=== PATIENT | male | born 1955 | race Caucasian/White ===

== ENCOUNTER 2020-08-19 18:44 | Emergency (ER) | payer BC ==
[~2020-08-19] VITALS: Ht 188 cm; Wt 98.9 kg
--- NOTE | 2020-08-19 18:55 | NUR ---
Note undone in EDM - 08/19/20 at 1902 by ISELA BIBRA FROM HOME TO ER BED 12. DISCONRIENTED. NOT IN RESP DISTRESS, BRETHING EVEN AND UNLABORED. AMBULATED FROM GURNEY TO BED. BROUGHT IN FOR WITNESSED SEIZURE. NO REPORT OF TRAUMA TO HEAD. PT WAS REPORTED TO BE DRINKER BUT WHEN PT WAS ASKED HE DINED DRINKING. PT VERBALIZED THAT HE TAKES SEIZURE MEDS BUT DOES NOT KNOW THE NAME. PT IS PLACED ON SEIZURE PRECAUTION. PADDED SIDERAIL. WAS AT THE BEDSIDE FOR EVAL. ORDERS RECEIVED, NOTED AND CARRIED OUT. IV LINE ALREADY ESTABLISHED BY THE EMT [employer]. PT ON [facility].
--- NOTE | 2020-08-19 18:55 | NUR ---
LISA FROM HOME TO ER BED 12. DISCONRIENTED. NOT IN RESP DISTRESS, BREATHING EVEN AND UNLABORED, SATTING @ 96% ON RA AMBULATED FROM GURNEY TO BED. BROUGHT IN FOR WITNESSED SEIZURE. NO REPORT OF TRAUMA TO HEAD. CANDI RN SPOKE WITH AND GOT INFORMATION THAT THE PT DOES NOT HAVE A SEIZURE DISORDERED. SHE REPORTS THAT THE PATIENT IS TAKING CLONAZEPAM AND XANAX FOR ANXIETY. PT IS PLACED ON SEIZURE PRECAUTION. PADDED SIDERAIL. WAS AT THE BEDSIDE FOR EVAL. ORDERS RECEIVED, NOTED AND CARRIED OUT. IV LINE ALREADY ESTABLISHED BY THE EMT [employer]. PT ON [employer].
[2020-08-19] MEDS ORDERED: LORAZEPAM INJ 2 MG/ML VIAL IVP ONE (19:00)
--- NOTE | 2020-08-19 19:07 | NUR ---
EMT AT BEDSIDE FOR EKG
[2020-08-19 19:08] LABS: BASOPHILS # (AUTO) 0.1 /CMM (0.0-0.2); BASOPHILS % (AUTO) 0.9 % (0.0-2.0); EOSINOPHILS % (AUTO) 0.3 % (0.0-6.0); HEMATOCRIT 48 % (39-51); HEMOGLOBIN 16.5 g/dL (13.5-17.5); LYMPHOCYTES # (AUTO) 2.2 /CMM (0.8-4.8); LYMPHOCYTES % (AUTO) 21.1 % (20.0-44.0); MEAN CORPUSCULAR HGB CONC 35 g/dl (31.0-36.0); MEAN CORPUSCULAR VOLUME 99 fL (80-96); MONOCYTES # (AUTO) 1.5 /CMM (0.1-1.30); NEUTROPHILS # (AUTO) 6.6 /CMM (1.8-8.9); NEUTROPHILS % (AUTO) 63.7 % (43.0-81.0); PLATELET COUNT (AUTO) 190 /CMM (150-450); RED BLOOD CELL COUNT(AUTO) 4.79 MIL/uL (4.5-6.0); WHITE BLOOD COUNT (AUTO) 10.4 K/uL (4.3-11.0)
[2020-08-19] MEDS ORDERED: LORAZEPAM INJ 2 MG/ML VIAL ONE (19:08)
--- NOTE | 2020-08-19 19:17 | NUR ---
PT TO CT
[2020-08-19 19:41] LABS: PHENOBARBITAL 2 ug/ml (15-39)
[2020-08-19 19:42] LABS: ALANINE AMINOTRANSFERASE 54 U/L (12-78); ALBUMIN 3.8 g/dL (3.4-5.0); ALCOHOL, BLOOD < 3 mg/dL (0-0); ALKALINE PHOSPHATASE 78 U/L (46-116); ASPARTATE AMINOTRANSFERASE 57 U/L (15-37); BILIRUBIN,DIRECT 0.2 mg/dL (0.0-0.2); CALCIUM, SERUM 8.7 mg/dL (8.5-10.1); CARBON DIOXIDE 21 mmol/L (21-32); CHLORIDE 98 mmol/L (98-107); CREATININE 1.2 mg/dL (0.6-1.3); GLUCOSE 169 mg/dL (74-106); POTASSIUM 4.1 mmol/L (3.5-5.1); SODIUM SERUM 135 mmol/L (136-145); TOTAL PROTEIN, SERUM 7.6 g/dL (6.4-8.2); UREA NITROGEN, BLOOD 18 mg/dL (7-18)
[2020-08-19 19:54] LABS: PHENYTOIN (DILANTIN) 0.5 ug/ml (10.0-20.0)
[2020-08-19] MEDS ORDERED: CHLO25CA22 PO (20:07)
[2020-08-19] MEDS ORDERED: ONDANSETRON HCL/PF 4 MG/2 ML VIAL IVP ONE (21:00)
[2020-08-19] MEDS ORDERED: MORPHINE SULFATE INJ 2 MG/ML DISP.SYRIN IV ONE (21:00)
[2020-08-19] MEDS ORDERED: ONDANSETRON HCL/PF 4 MG/2 ML VIAL ONE (21:08)
[2020-08-19] MEDS ORDERED: MORPHINE SULFATE INJ 4 MG/ML DISP.SYRIN ONE ×2 (21:09→23:31)
--- NOTE | 2020-08-19 21:22 | NUR ---
PAWAN (): [phone] - CELL [phone] - BEGGS
--- NOTE | 2020-08-19 21:33 | NUR ---
PT'S IS AWARE THAT THE PATIENT IS GOING TO BE ADMITTED TO THE HOSPITAL W/ CHANCE OF GETTING TRANSFERRED TO A DIFFERENT HOSPITAL
--- NOTE | 2020-08-19 23:07 | NUR ---
COVID NEGATIVE PER LAB
[2020-08-19] MEDS ORDERED: MORPHINE SULFATE INJ 10 MG/ML DISP.SYRIN IV ONE (23:30)
--- NOTE | 2020-08-19 23:30 | NUR ---
PT COMPLAINED OF PAIN. MD MADE AWARE. VERBAL ORDER RECEIVED TO GIVEN MORPHINE 4MG IV X 1. NOTED AND CARRIED OUT
--- NOTE | 2020-08-20 00:35 | NUR ---
Call from Ruthy Vikram CANTU. Pt accepted to [facility] by Dr Oconnor. # for report [phone]. [facility] eta 50 minutes.
--- NOTE | 2020-08-20 00:58 | NUR ---
report given to crow tim for cesar nurse at [facility]
[2020-08-20 01:45] VITALS: BP 130/78
--- NOTE | 2020-08-20 02:04 | NUR ---
pt left in stable cond with private ambulance. report given. all transfer papers given. [place]ss. [place]
== END 2020-08-20 02:05 | disposition short-term general hospital (02) ==
LOC: ER 18:50
DX: F13.239 Sedative, hypnotic or anxiolytic dependence with withdrawal, unspecified (principal); R56.9 Unspecified convulsions; F10.11 Alcohol abuse, in remission; T42.4X5A Adverse effect of benzodiazepines, initial encounter; Y92.018 Other place in single-family (private) house as the place of occurrence of the external cause; Y90.0 Blood alcohol level of less than 20 mg/100 ml; J32.8 Other chronic sinusitis; S22.049A Unspecified fracture of fourth thoracic vertebra, initial encounter for closed fracture; X58.XXXA Exposure to other specified factors, initial encounter; Z20.822 Contact with and (suspected) exposure to COVID-19
CPT/HCPCS: 36415; 70450; 72128; 80048; 80076; 80184; 80185; 80320; 82962; 85025; 87426; 93005; 96374; 96375; 96376; 99285; C9803; J2060; J2270 ×2; J2405; G0480

== ENCOUNTER 2020-08-29 12:38 | Emergency (ER) | payer BC ==
[~2020-08-29] VITALS: Ht 188 cm; Wt 95.3 kg
[2020-08-29] MEDS ORDERED: ACETAMINOPHEN 325 MG TABLET PO ONE (13:00)
[2020-08-29] MEDS ORDERED: CEFTRIAXONE 1GM BAG (ER ONLY) 1 GM/50 ML PIGGYBACK IV ONE (13:00)
[2020-08-29] MEDS ORDERED: IV NS 0.9% 1,000 ML BAG IV ONE ×2 (13:00→15:30)
[2020-08-29] MEDS ORDERED: CEFTRIAXONE 1 G VIAL ONE (13:56)
[2020-08-29] MEDS ORDERED: CEFTRIAXONE 1GM BAG (ER ONLY) 50 ML IV ONE (14:03)
[2020-08-29 14:14] LABS: BASOPHILS # (AUTO) 0.1 /CMM (0.0-0.2); BASOPHILS % (AUTO) 0.9 % (0.0-2.0); EOSINOPHILS % (AUTO) 0.1 % (0.0-6.0); HEMATOCRIT 45 % (39-51); HEMOGLOBIN 15.1 g/dL (13.5-17.5); LYMPHOCYTES # (AUTO) 1.8 /CMM (0.8-4.8); LYMPHOCYTES % (AUTO) 11.9 % (20.0-44.0); MEAN CORPUSCULAR HGB CONC 34 g/dl (31.0-36.0); MEAN CORPUSCULAR VOLUME 99 fL (80-96); MONOCYTES # (AUTO) 2.1 /CMM (0.1-1.30); MONOCYTES % (AUTO) 13.6 % (2.0-12.0); NEUTROPHILS # (AUTO) 11.4 /CMM (1.8-8.9); NEUTROPHILS % (AUTO) 73.5 % (43.0-81.0); PLATELET COUNT (AUTO) 174 /CMM (150-450); RED BLOOD CELL COUNT(AUTO) 4.51 MIL/uL (4.5-6.0); WHITE BLOOD COUNT (AUTO) 15.5 K/uL (4.3-11.0)
[2020-08-29 14:21] LABS: CALCIUM, SERUM 8.6 mg/dL (8.5-10.1); CARBON DIOXIDE 23 mmol/L (21-32); CHLORIDE 99 mmol/L (98-107); CREATININE 1.3 mg/dL (0.6-1.3); GLUCOSE 143 mg/dL (74-106); POTASSIUM 3.8 mmol/L (3.5-5.1); SODIUM SERUM 135 mmol/L (136-145); UREA NITROGEN, BLOOD 33 mg/dL (7-18)
[2020-08-29 14:26] LABS: ALANINE AMINOTRANSFERASE 108 U/L (12-78); ALBUMIN 2.2 g/dL (3.4-5.0); ALKALINE PHOSPHATASE 85 U/L (46-116); ASPARTATE AMINOTRANSFERASE 52 U/L (15-37); BILIRUBIN,DIRECT 0.2 mg/dL (0.0-0.2); BILIRUBIN,TOTAL 0.8 mg/dL (0.2-1.0); TOTAL PROTEIN, SERUM 6.8 g/dL (6.4-8.2)
[2020-08-29 14:58] LABS: BILIRUBIN,URINE SMALL (NEGATIVE); COLOR,URINE DARK YELLOW (YELLOW); LEUKOCYTE ESTERASE ,URINE NEGATIVE (NEGATIVE); NITRITE, URINE NEGATIVE (NEGATIVE); PH,URINE 5.5 (5.0-8.0); PROTEIN,URINE TRACE mg/dl (NEGATIVE); UGLUCOSE NEGATIVE (NEGATIVE); UROBILINOGEN,URINE 0.2 EU/dL (0.2)
[2020-08-29 15:10] LABS: WBC,URINE 0-2 /HPF (0-3)
[2020-08-29 15:11] LABS: BACTERIA,URINE Few /HPF (None Seen); SQUAMOUS EPITHELIAL CELL,UR Few /HPF (None Seen)
[2020-08-29 15:12] LABS: URINE AMORPHOUS URATE Moderate /HPF (None Seen)
[2020-08-29] MEDS ORDERED: NA P133E RC (15:48)
[2020-08-29] MEDS ORDERED: HYDR-3972 PO (15:48)
[2020-08-29] MEDS ORDERED: CHLO25CA10 PO (15:48)
[2020-08-29] MEDS ORDERED: ACET-868 PO (15:48)
[2020-08-29] MEDS ORDERED: MAGN400O6 PO (15:48)
[2020-08-29] MEDS ORDERED: BISA10SU11 RC (15:48)
[2020-08-29] MEDS ORDERED: THIA100T74 PO (15:48)
[2020-08-29] MEDS ORDERED: IOHEXOL-300 100 ML VIAL IV ONE (15:48)
[2020-08-29] MEDS ORDERED: IV NS 0.9% 250 ML IV ONE (15:48)
[2020-08-29] MEDS ORDERED: AMOX1TAB16 PO (15:48)
[2020-08-29] MEDS ORDERED: SENN-261 PO (15:49)
[2020-08-29] MEDS ORDERED: CALC1TAB30 PO (15:49)
[2020-08-29] MEDS ORDERED: ASPIRIN 300 MG/SUPP.RECT RC ONE ×2 (18:30→19:33)
[2020-08-29 21:21] VITALS: BP 109/69
== END 2020-08-29 21:30 | disposition short-term general hospital (02) ==
LOC: ER 12:42
DX: A41.9 Sepsis, unspecified organism (principal); R65.20 Severe sepsis without septic shock; E86.0 Dehydration; R77.8 Other specified abnormalities of plasma proteins; K76.0 Fatty (change of) liver, not elsewhere classified; R74.01 Elevation of levels of liver transaminase levels; M48.54XA Collapsed vertebra, not elsewhere classified, thoracic region, initial encounter for fracture; K57.90 Diverticulosis of intestine, part unspecified, without perforation or abscess without bleeding; S42.292D Other displaced fracture of upper end of left humerus, subsequent encounter for fracture with routine healing; X58.XXXD Exposure to other specified factors, subsequent encounter; K44.9 Diaphragmatic hernia without obstruction or gangrene; R00.0 Tachycardia, unspecified; Z20.822 Contact with and (suspected) exposure to COVID-19
CPT/HCPCS: 36415; 71045; 74177; 76705; 80048; 80076; 81001; 83605 ×2; 83880; 84145; 84484 ×2; 85025; 85730; 86850; 87040 ×2; 87081; 87086; 87426; 93005 ×2; 96361; 96365; 99291; C9803 ×2; J0696; J7030 ×2; J7050; Q9967; U0003; J7040

== ENCOUNTER 2021-02-08 20:15 | Inpatient (IN) | payer MEDICARE, BC ==
[~2021-02-08] VITALS: Ht 188 cm; Wt 95.3 kg
[~2021-02-08 20:15] MED LIST: ACET-868 PO; AMOX1TAB16 PO; BISA10SU11 RC; CALC1TAB30 PO; CHLO25CA10 PO; HYDR-3972 PO; MAGN400O6 PO; NA P133E RC; SENN-261 PO; THIA100T74 PO
[2021-02-08 20:46] LABS: BILIRUBIN,URINE Negative (NEGATIVE); COLOR,URINE YELLOW (YELLOW); LEUKOCYTE ESTERASE ,URINE Negative (NEGATIVE); NITRITE, URINE Negative (NEGATIVE); PH,URINE 5.5 (5.0-8.0); PROTEIN,URINE Negative (NEGATIVE); UGLUCOSE Negative (NEGATIVE); UROBILINOGEN,URINE 0.2 EU/dL (0.2)
[2021-02-08 20:50] LABS: BACTERIA,URINE Rare /HPF (None Seen); SQUAMOUS EPITHELIAL CELL,UR Few /HPF (None Seen); WBC,URINE NONE SEEN /HPF (0-3)
[2021-02-08 20:53] LABS: BASOPHILS # (AUTO) 0.1 K/uL (0.0-0.2); BASOPHILS % (AUTO) 1.1 % (0.0-2.0); EOSINOPHILS % (AUTO) 3.7 % (0.0-6.0); HEMATOCRIT 49 % (39-51); HEMOGLOBIN 16.4 g/dL (13.5-17.5); LYMPHOCYTES # (AUTO) 3.5 K/uL (0.8-4.8); LYMPHOCYTES % (AUTO) 48.7 % (20.0-44.0); MEAN CORPUSCULAR HGB CONC 34 g/dl (31.0-36.0); MEAN CORPUSCULAR VOLUME 98 fL (80-96); MONOCYTES # (AUTO) 0.8 K/uL (0.1-1.30); MONOCYTES % (AUTO) 11.1 % (2.0-12.0); NEUTROPHILS # (AUTO) 2.5 K/uL (1.8-8.9); NEUTROPHILS % (AUTO) 35.4 % (43.0-81.0); PLATELET COUNT (AUTO) 227 K/uL (150-450); RED BLOOD CELL COUNT(AUTO) 4.97 MIL/uL (4.5-6.0); WHITE BLOOD COUNT (AUTO) 7.2 K/uL (4.3-11.0)
[2021-02-08 21:02] LABS: CALCIUM, SERUM 8.5 mg/dL (8.5-10.1); CARBON DIOXIDE 23 mmol/L (21-32); CHLORIDE 108 mmol/L (98-107); CREATININE 0.9 mg/dL (0.6-1.3); GLUCOSE 97 mg/dL (74-106); POTASSIUM 3.8 mmol/L (3.5-5.1); SODIUM SERUM 144 mmol/L (136-145); UREA NITROGEN, BLOOD 12 mg/dL (7-18)
[2021-02-08 21:12] LABS: ALANINE AMINOTRANSFERASE 26 U/L (12-78); ALBUMIN 3.5 g/dL (3.4-5.0); ALCOHOL, BLOOD 227 mg/dL (0-0); ALKALINE PHOSPHATASE 119 U/L (46-116); ASPARTATE AMINOTRANSFERASE 31 U/L (15-37); BILIRUBIN,DIRECT 0.1 mg/dL (0.0-0.2); BILIRUBIN,TOTAL 0.4 mg/dL (0.2-1.0); TOTAL PROTEIN, SERUM 7.1 g/dL (6.4-8.2)
[2021-02-08 21:42] LABS: ACETAMINOPHEN < 2 ug/ml (10-30)
[2021-02-09] MEDS ORDERED: LORAZEPAM 0.5 MG TABLET PO PRN (02:30)
[2021-02-09] MEDS ORDERED: MAGNESIUM HYDROXIDE 30 ML UDC PO PRN (02:30)
[2021-02-09] MEDS ORDERED: MAG HYDROX/AL HYDROX/SIMETH 30 ML UDC PO PRN (02:30)
[2021-02-09] MEDS ORDERED: ACETAMINOPHEN 325 MG TABLET PO PRN (02:30)
[2021-02-09] MEDS ORDERED: BLOOD SUGAR DIAGNOSTIC 1 EACH STRIP IN ONE (02:30)
[2021-02-09 03:14] VITALS: BP 135/85
[2021-02-09] MEDS ORDERED: BISACODYL SUPP (10 MG) 10 MG/SUPP.RECT SUPP.RECT RC PRN (07:00)
[2021-02-09] MEDS ORDERED: NA PHOS,M-B/NA PHOS,DI-BA 1 EA ENEMA RC PRN (07:00)
[2021-02-09 08:00] VITALS: BP 136/78
[2021-02-09] MEDS: THIAMINE HCL 100 MG TABLET PO SCH (08:50)
[2021-02-09] MEDS: CALCIUM CARB 250MG /VITAMIN D 1 UDTAB PO SCH (08:50)
[2021-02-09] MEDS ORDERED: AMOX/CLAVULANATE 875 MG TABLET PO SCH (09:00)
[2021-02-09 16:00] VITALS: BP 140/90
[2021-02-09] MEDS: CHLORDIAZEPOXIDE HCL 25 MG CAPSULE PO SCH (18:34)
[2021-02-09 20:00] VITALS: BP 139/89
[2021-02-09] MEDS: GABAPENTIN 100 MG CAPSULE PO SCH (21:28)
[2021-02-09] MEDS: SENNOSIDES 8.6 MG TABLET PO SCH (21:28)
[2021-02-10] MEDS: CHLORDIAZEPOXIDE HCL 25 MG CAPSULE PO SCH ×3 (05:47→20:55)
[2021-02-10 07:49] LABS: BASOPHILS # (AUTO) 0.1 K/uL (0.0-0.2); BASOPHILS % (AUTO) 1.2 % (0.0-2.0); HEMATOCRIT 45 % (39-51); HEMOGLOBIN 15.5 g/dL (13.5-17.5); LYMPHOCYTES # (AUTO) 2.1 K/uL (0.8-4.8); LYMPHOCYTES % (AUTO) 28.2 % (20.0-44.0); MEAN CORPUSCULAR HGB CONC 35 g/dl (31.0-36.0); MEAN CORPUSCULAR VOLUME 97 fL (80-96); MONOCYTES # (AUTO) 0.8 K/uL (0.1-1.30); MONOCYTES % (AUTO) 10.3 % (2.0-12.0); NEUTROPHILS # (AUTO) 4.2 K/uL (1.8-8.9); NEUTROPHILS % (AUTO) 57.3 % (43.0-81.0); PLATELET COUNT (AUTO) 198 K/uL (150-450); RED BLOOD CELL COUNT(AUTO) 4.63 MIL/uL (4.5-6.0); WHITE BLOOD COUNT (AUTO) 7.3 K/uL (4.3-11.0)
[2021-02-10 08:00] VITALS: BP 129/84
[2021-02-10] MEDS: THIAMINE HCL 100 MG TABLET PO SCH (08:07)
[2021-02-10] MEDS: GABAPENTIN 100 MG CAPSULE PO SCH ×2 (08:07→20:55)
[2021-02-10] MEDS: CALCIUM CARB 250MG /VITAMIN D 1 UDTAB PO SCH (08:08)
[2021-02-10] MEDS: ESCITALOPRAM OXALATE (10 MG) 10 MG TABLET PO SCH (08:09)
[2021-02-10 08:15] LABS: ALBUMIN 3.1 g/dL (3.4-5.0); BILIRUBIN,TOTAL 1.3 mg/dL (0.2-1.0); CALCIUM, SERUM 8.1 mg/dL (8.5-10.1); PHOSPHORUS 2.9 mg/dL (2.5-4.9); POTASSIUM 3.5 mmol/L (3.5-5.1); TOTAL PROTEIN, SERUM 6.4 g/dL (6.4-8.2)
[2021-02-10 08:28] LABS: THYROID STIMULATING HORMONE 2.597 uIU/mL (0.358-3.74)
[2021-02-10 16:00] VITALS: BP 141/83
[2021-02-10 19:44] VITALS: BP 127/60
[2021-02-10] MEDS: SENNOSIDES 8.6 MG TABLET PO SCH (21:15)
[2021-02-11] MEDS: CHLORDIAZEPOXIDE HCL 25 MG CAPSULE PO SCH ×3 (05:15→21:28)
[2021-02-11 08:00] VITALS: BP 120/78
[2021-02-11] MEDS: CALCIUM CARB 250MG /VITAMIN D 1 UDTAB PO SCH (08:22)
[2021-02-11] MEDS: ESCITALOPRAM OXALATE (10 MG) 10 MG TABLET PO SCH (08:22)
[2021-02-11] MEDS: THIAMINE HCL 100 MG TABLET PO SCH (08:22)
[2021-02-11] MEDS: GABAPENTIN 100 MG CAPSULE PO SCH ×2 (08:22→21:28)
[2021-02-11 16:00] VITALS: BP 159/91
[2021-02-11 20:00] VITALS: BP 119/76
[2021-02-11] MEDS: SENNOSIDES 8.6 MG TABLET PO SCH (22:00)
[2021-02-11] MEDS: TEMAZEPAM 7.5 MG CAPSULE PO PRN (22:10)
[2021-02-12] MEDS: CHLORDIAZEPOXIDE HCL 25 MG CAPSULE PO SCH ×3 (05:25→21:03)
[2021-02-12 08:00] VITALS: BP 116/71
[2021-02-12] MEDS: ESCITALOPRAM OXALATE (10 MG) 10 MG TABLET PO SCH (08:39)
[2021-02-12] MEDS: GABAPENTIN 100 MG CAPSULE PO SCH ×2 (08:40→21:03)
[2021-02-12] MEDS: CALCIUM CARB 250MG /VITAMIN D 1 UDTAB PO SCH (08:40)
[2021-02-12] MEDS: THIAMINE HCL 100 MG TABLET PO SCH (08:40)
[2021-02-12 16:00] VITALS: BP 108/60
[2021-02-12 20:00] VITALS: BP 123/71
[2021-02-12] MEDS: SENNOSIDES 8.6 MG TABLET PO SCH (21:04)
[2021-02-12] MEDS: TEMAZEPAM 7.5 MG CAPSULE PO PRN (23:06)
[2021-02-13] MEDS: CHLORDIAZEPOXIDE HCL 25 MG CAPSULE PO SCH ×3 (04:51→21:16)
[2021-02-13 08:00] VITALS: BP 118/70
[2021-02-13] MEDS: CALCIUM CARB 250MG /VITAMIN D 1 UDTAB PO SCH (08:46)
[2021-02-13] MEDS: THIAMINE HCL 100 MG TABLET PO SCH (08:49)
[2021-02-13] MEDS: GABAPENTIN 100 MG CAPSULE PO SCH ×2 (08:49→21:15)
[2021-02-13] MEDS: ESCITALOPRAM OXALATE (10 MG) 10 MG TABLET PO SCH (08:49)
[2021-02-13] MEDS ORDERED: HYDROCORTISONE CR 30 GM TUBE RC PRN (15:00)
[2021-02-13 16:00] VITALS: BP 112/70
[2021-02-13] MEDS: SENNOSIDES 8.6 MG TABLET PO SCH (21:15)
[2021-02-14] MEDS: TEMAZEPAM 7.5 MG CAPSULE PO PRN ×2 (00:17→22:47)
[2021-02-14] MEDS: CHLORDIAZEPOXIDE HCL 25 MG CAPSULE PO SCH ×3 (06:10→21:03)
[2021-02-14 08:00] VITALS: BP 110/71
[2021-02-14] MEDS: THIAMINE HCL 100 MG TABLET PO SCH (08:21)
[2021-02-14] MEDS: GABAPENTIN 100 MG CAPSULE PO SCH ×2 (08:22→21:03)
[2021-02-14] MEDS: CALCIUM CARB 250MG /VITAMIN D 1 UDTAB PO SCH (08:22)
[2021-02-14] MEDS: ESCITALOPRAM OXALATE (10 MG) 10 MG TABLET PO SCH (08:22)
[2021-02-14 16:04] VITALS: BP 129/73
[2021-02-14] MEDS: HYDROCODONE/APAP 5/325MG TABLET PO PRN (17:16)
[2021-02-14 20:22] VITALS: BP 106/60
[2021-02-14] MEDS: SENNOSIDES 8.6 MG TABLET PO SCH (21:03)
[2021-02-15] MEDS: CHLORDIAZEPOXIDE HCL 25 MG CAPSULE PO SCH ×3 (04:53→21:25)
[2021-02-15 08:00] VITALS: BP 104/60
[2021-02-15] MEDS: GABAPENTIN 100 MG CAPSULE PO SCH ×2 (08:13→21:25)
[2021-02-15] MEDS: CALCIUM CARB 250MG /VITAMIN D 1 UDTAB PO SCH (08:14)
[2021-02-15] MEDS: THIAMINE HCL 100 MG TABLET PO SCH (08:14)
[2021-02-15] MEDS: ESCITALOPRAM OXALATE (10 MG) 10 MG TABLET PO SCH (08:14)
[2021-02-15 16:00] VITALS: BP 119/61
[2021-02-15 20:00] VITALS: BP 114/64
[2021-02-15] MEDS: TEMAZEPAM 7.5 MG CAPSULE PO PRN (21:26)
[2021-02-15] MEDS: SENNOSIDES 8.6 MG TABLET PO SCH (21:30)
[2021-02-16] MEDS: CHLORDIAZEPOXIDE HCL 25 MG CAPSULE PO SCH (05:14)
[2021-02-16 08:00] VITALS: BP 112/67
[2021-02-16] MEDS: ESCITALOPRAM OXALATE (10 MG) 10 MG TABLET PO SCH (08:26)
[2021-02-16] MEDS: THIAMINE HCL 100 MG TABLET PO SCH (08:26)
[2021-02-16] MEDS: CALCIUM CARB 250MG /VITAMIN D 1 UDTAB PO SCH (08:26)
[2021-02-16] MEDS: GABAPENTIN 100 MG CAPSULE PO SCH ×2 (08:26→21:24)
[2021-02-16] MEDS ORDERED: CHLORDIAZEPOXIDE HCL 25 MG CAPSULE PO PRN (09:00)
[2021-02-16] MEDS: HYDROCODONE/APAP 5/325MG TABLET PO PRN (15:56)
[2021-02-16 16:00] VITALS: BP 124/80
[2021-02-16 19:56] VITALS: BP 121/64
[2021-02-16] MEDS: SENNOSIDES 8.6 MG TABLET PO SCH ×2 (21:24→21:29)
[2021-02-17 08:00] VITALS: BP 99/60
[2021-02-17] MEDS: THIAMINE HCL 100 MG TABLET PO SCH (10:23)
[2021-02-17] MEDS: CALCIUM CARB 250MG /VITAMIN D 1 UDTAB PO SCH (10:23)
[2021-02-17] MEDS: ESCITALOPRAM OXALATE (10 MG) 10 MG TABLET PO SCH (10:23)
[2021-02-17] MEDS: GABAPENTIN 100 MG CAPSULE PO SCH ×2 (10:23→21:23)
[2021-02-17 16:00] VITALS: BP_SYST 101; BP_SYST 138; BP_DIAS 60; BP_DIAS 71
[2021-02-17] MEDS: HYDROCODONE/APAP 5/325MG TABLET PO PRN (18:39)
[2021-02-17 20:23] VITALS: BP 109/62
[2021-02-17] MEDS: SENNOSIDES 8.6 MG TABLET PO SCH (21:23)
[2021-02-17] MEDS: TEMAZEPAM 7.5 MG CAPSULE PO PRN (21:30)
[2021-02-18 08:00] VITALS: BP 110/63
[2021-02-18] MEDS: GABAPENTIN 100 MG CAPSULE PO SCH ×2 (09:23→20:31)
[2021-02-18] MEDS: ESCITALOPRAM OXALATE (10 MG) 10 MG TABLET PO SCH (09:23)
[2021-02-18] MEDS: THIAMINE HCL 100 MG TABLET PO SCH (09:24)
[2021-02-18] MEDS: CALCIUM CARB 250MG /VITAMIN D 1 UDTAB PO SCH (09:24)
[2021-02-18 16:00] VITALS: BP 116/65
[2021-02-18 20:00] VITALS: BP 116/74
[2021-02-18 20:01] VITALS: BP 116/74
[2021-02-18] MEDS: SENNOSIDES 8.6 MG TABLET PO SCH (21:22)
[2021-02-18] MEDS: TEMAZEPAM 7.5 MG CAPSULE PO PRN (21:28)
[2021-02-19 08:00] VITALS: BP 116/61
[2021-02-19] MEDS: CALCIUM CARB 250MG /VITAMIN D 1 UDTAB PO SCH (08:13)
[2021-02-19] MEDS: GABAPENTIN 100 MG CAPSULE PO SCH ×2 (08:14→21:16)
[2021-02-19] MEDS: ESCITALOPRAM OXALATE (10 MG) 10 MG TABLET PO SCH (08:14)
[2021-02-19] MEDS: THIAMINE HCL 100 MG TABLET PO SCH (08:14)
[2021-02-19] MEDS: HYDROCODONE/APAP 5/325MG TABLET PO PRN (15:48)
[2021-02-19 16:00] VITALS: BP 122/90
[2021-02-19 20:00] VITALS: BP 131/75
[2021-02-19] MEDS: SENNOSIDES 8.6 MG TABLET PO SCH (22:00)
[2021-02-19] MEDS: TEMAZEPAM 7.5 MG CAPSULE PO PRN (22:03)
[2021-02-20 08:00] VITALS: BP 112/72
[2021-02-20] MEDS: GABAPENTIN 100 MG CAPSULE PO SCH (09:15)
[2021-02-20] MEDS: ESCITALOPRAM OXALATE (10 MG) 10 MG TABLET PO SCH (09:16)
[2021-02-20] MEDS: CALCIUM CARB 250MG /VITAMIN D 1 UDTAB PO SCH (09:16)
[2021-02-20] MEDS: THIAMINE HCL 100 MG TABLET PO SCH (09:20)
[2021-02-20 16:00] VITALS: BP 126/75
== END 2021-02-20 18:30 | disposition home or self-care (01) | DRG 885 ==
LOC: ER 20:17 → GPS 02-09 01:41
PROVIDERS: ADMIT Psychiatry & Neurology Psychiatry; ATTEND Nurse Practitioner Acute Care
DX: F33.2 Major depressive disorder, recurrent severe without psychotic features (principal); E44.1 Mild protein-calorie malnutrition; F10.239 Alcohol dependence with withdrawal, unspecified; F29 Unspecified psychosis not due to a substance or known physiological condition; G40.909 Epilepsy, unspecified, not intractable, without status epilepticus; E86.0 Dehydration; Y90.8 Blood alcohol level of 240 mg/100 ml or more; E88.09 Other disorders of plasma-protein metabolism, not elsewhere classified; Z68.27 Body mass index [BMI] 27.0-27.9, adult; Z20.822 Contact with and (suspected) exposure to COVID-19; Y93.9 Activity, unspecified; T14.91XA Suicide attempt, initial encounter; Y93.89 Activity, other specified; Y92.89 Other specified places as the place of occurrence of the external cause
CPT/HCPCS: 36415; 80048-TC; 80053-TC; 80061-TC; 80076-TC; 81001; 82962-TC; 83735-TC; 84100-TC; 84443-TC; 85025-TC; 87081-TC; C9803; G0480